=== PATIENT | female | born 1995 | race Caucasian/White ===

== ENCOUNTER 2017-01-26 01:57 | Emergency (ER) | payer SELFPAY ==
[~2017-01-26] VITALS: Ht 162.6 cm; Wt 109.1 kg
[2017-01-26] MEDS ORDERED: HYDROCODONE/ACETAMINOPHEN 5-325 MG TABLET PO ONE (04:15)
[2017-01-26] MEDS ORDERED: PROPARACAINE HCL 0.5% 15 ML OPHTHALMIC SOLUTION OS ONE (04:15)
[2017-01-26 05:47] VITALS: BP 121/67
== END 2017-01-26 05:50 | disposition home or self-care (01) ==
LOC: EMS 01:58
DX: S00.212A Abrasion of left eyelid and periocular area, initial encounter (principal); W22.8XXA Striking against or struck by other objects, initial encounter; Y93.89 Activity, other specified; Y92.89 Other specified places as the place of occurrence of the external cause; Y99.8 Other external cause status
CPT/HCPCS: 81025; 99283

== ENCOUNTER 2018-10-16 11:05 | Inpatient (IN) | payer MEDICAID ==
[~2018-10-16] VITALS: Ht 160 cm; Wt 109.1 kg
[2018-10-16] MEDS ORDERED: KETOROLAC TROMETHAMINE 30 MG/ML VIAL IVP ONE (12:00)
[2018-10-16] MEDS ORDERED: ACETAMINOPHEN 500 MG TABLET PO ONE (12:00)
[2018-10-16] MEDS ORDERED: SODIUM CHLORIDE 0.9% 1,000 ML IV ONE ×4 (12:00→15:45)
[2018-10-16] MEDS ORDERED: ONDANSETRON HCL 4 MG/2 ML VIAL IVP ONE (12:00)
[2018-10-16 12:24] LABS: BASOPHILS % (AUTO) 0.5 % (0.0-2.0); EOSINOPHILS % (AUTO) 0 % (1.0-6.0); HEMATOCRIT 44.3 % (36-46); HEMOGLOBIN 14.8 g/dL (12.0-16.0); LYMPHOCYTES # (AUTO) 1.2 K/uL (1.0-4.8); LYMPHOCYTES % (AUTO) 5.7 % (22.0-44.0); MEAN CORPUSCULAR HEMOGLOBIN 28.8 pg (26.0-34.0); MEAN CORPUSCULAR HGB CONC 33.4 G/dL (31.0-37.0); MEAN CORPUSCULAR VOLUME 86 fL (80-100); MONOCYTES # (AUTO) 1.4 K/uL (0.1-1.0); MONOCYTES % (AUTO) 6.8 % (2.0-9.0); NEUTROPHILS # (AUTO) 17.8 K/uL (1.8-7.7); PLATELET COUNT (AUTO) 272 K/uL (150-450); RED BLOOD CELL COUNT(AUTO) 5.14 MIL/uL (4.00-5.20); RED CELL DISTRIBUTION WIDTH 13.2 % (11.5-14.5)
[2018-10-16 12:41] LABS: APPEARANCE,URINE CLEAR (CLEAR); BILIRUBIN,URINE NEGATIVE (NEGATIVE); GLUCOSE, URINE (UA) >=1000 mg/dL (NEGATIVE); KETONES,URINE >=80 mg/dL (NEGATIVE); NITRATE,URINE NEGATIVE (NEGATIVE); OCCULT BLOOD,URINE TRACE (NEGATIVE); PROTEIN,URINE POS 1+ (NEGATIVE); UROBILINOGEN,URINE 0.2 mg/dL (<=1.0)
[2018-10-16 12:46] LABS: INFLUENZA TYPE A NEGATIVE FOR TYPE A (NEGATIVE); INFLUENZA TYPE B NEGATIVE FOR TYPE B (NEGATIVE)
[2018-10-16 12:49] LABS: ALANINE AMINOTRANSFERASE 17 U/L (12-78); ALBUMIN 3.1 g/dL (3.4-5.0); ALKALINE PHOSPHATASE 118 U/L (46-116); ANION GAP 15 mmol/L (8-16); ASPARTATE AMINOTRANSFERASE 12 U/L (15-37); BILIRUBIN,TOTAL 1.6 mg/dL (0.1-1.0); CALCIUM, TOTAL 9.5 mg/dL (8.8-10.5); CARBON DIOXIDE 23 mmol/L (22-29); CHLORIDE 93 mmol/L (98-107); CREATININE 1.05 mg/dL (0.60-1.30); GLOMERULAR FILTR. RATE CALC > 60 mL/min (>60); HCG,QUANTITATIVE < 1 mIU/mL (0-6); POTASSIUM 4.4 mmol/L (3.5-5.1); SODIUM SERUM 131 mmol/L (136-145); TOTAL PROTEIN, SERUM 8.8 g/dL (6.4-8.2); UREA NITROGEN, BLOOD 13 mg/dL (7-18)
[2018-10-16 12:51] LABS: GLUCOSE,RANDOM 414 mg/dL (70-110)
[2018-10-16 12:52] LABS: BACTERIA,URINE None Seen /HPF (None Seen); LEUKOCYTE ESTERASE ,URINE TRACE (NEGATIVE); RBC,URINE 0-2 /HPF (0-2); WBC,URINE 0-2 /HPF (0-5)
[2018-10-16 12:53] LABS: SQUAMOUS EPITHELIAL CELL,UR Few /LPF (None Seen)
[2018-10-16] MEDS ORDERED: INSULIN REGULAR, HUMAN 100 UNITS/ML IVP ONE (13:15)
[2018-10-16 13:22] LABS: LIPASE 52 U/L (73-393)
[2018-10-16] MEDS ORDERED: INSULIN LISPRO 100 UNITS/ML SQ PRN (14:30)
[2018-10-16] MEDS ORDERED: MORPHINE SULFATE 4 MG/ML SYRINGE IVP PRN (14:30)
[2018-10-16] MEDS: CefTRIAXone 1 GM/DEXTROSE 50 ML IV ONE ×2 (14:30→14:54)
[2018-10-16] MEDS ORDERED: GLUCAGON,HUMAN RECOMBINANT 1 MG VIAL IM PRN (14:30)
[2018-10-16] MEDS ORDERED: HYDROCODONE/ACETAMINOPHEN 5-325 MG TABLET PO PRN (14:30)
[2018-10-16] MEDS ORDERED: METOCLOPRAMIDE HCL 5 MG/ML 2 ML VIAL IVP ONE (14:30)
[2018-10-16] MEDS ORDERED: ONDANSETRON HCL 4 MG/2 ML VIAL IVP PRN (14:30)
[2018-10-16] MEDS ORDERED: ACETAMINOPHEN 325 MG TABLET PO PRN (14:30)
[2018-10-16 15:09] LABS: GLUCOSE,POINT OF CARE 316 MG/DL (70-110)
[2018-10-16] MEDS ORDERED: MAGNESIUM HYDROXIDE SUSPENSION 30 ML UDCUP PO PRN (15:45)
[2018-10-16] MEDS ORDERED: DEXTROSE 50%-WATER 25 GM/50 ML SYRINGE IVP PRN (15:45)
[2018-10-16] MEDS ORDERED: BISACODYL 10 MG RECTAL RECTAL SUPPOSITORY PR PRN (15:45)
[2018-10-16] MEDS: HEPARIN SODIUM,PORCINE 5,000 UNITS/ML VIAL SQ SCH ×2 (16:01→23:46)
[2018-10-16] MEDS: INSULIN LISPRO 100 UNITS/ML SQ PRN ×2 (16:02→20:17)
[2018-10-16] MEDS: ONDANSETRON HCL 4 MG/2 ML VIAL IVP PRN (18:26)
[2018-10-16 18:40] VITALS: BP 101/56
[2018-10-16] MEDS: MORPHINE SULFATE 2 MG/ML SYRINGE IVP PRN (19:27)
[2018-10-16] MEDS: ZOLPIDEM TARTRATE 5 MG TABLET PO PRN (20:17)
[2018-10-16] MEDS: DOCUSATE SODIUM 100 MG CAPSULE PO SCH (20:17)
[2018-10-16] MEDS: INSULIN GLARGINE,HUM.REC.ANLOG 100 UNITS/ML SQ SCH (20:18)
[2018-10-16] MEDS: ACETAMINOPHEN 325 MG TABLET PO PRN (20:33)
[2018-10-16] MEDS: HYDROCODONE/ACETAMINOPHEN 5-325 MG TABLET PO PRN (23:57)
[2018-10-17] VITALS (7 sets, daily range): BP systolic 105–129; BP diastolic 46–80
[2018-10-17 00:20] LABS: GLUCOMETER DEV NAME(LOC) 5N.2; GLUCOSE,POINT OF CARE 288 MG/DL (70-110)
[2018-10-17] MEDS: ACETAMINOPHEN 325 MG TABLET PO PRN ×3 (05:31→20:00)
[2018-10-17] MEDS: INSULIN LISPRO 100 UNITS/ML SQ PRN ×4 (06:14→20:01)
[2018-10-17 06:29] LABS: CALCIUM, TOTAL 8.2 mg/dL (8.8-10.5); CARBON DIOXIDE 20 mmol/L (22-29); CREATININE 0.78 mg/dL (0.60-1.30); GLOMERULAR FILTR. RATE CALC > 60 mL/min (>60); GLUCOSE,RANDOM 267 mg/dL (70-110); UREA NITROGEN, BLOOD 13 mg/dL (7-18)
[2018-10-17 07:02] LABS: ANION GAP 15 mmol/L (8-16); CHLORIDE 97 mmol/L (98-107); POTASSIUM 4.1 mmol/L (3.5-5.1); SODIUM SERUM 132 mmol/L (136-145)
[2018-10-17] MEDS: PANTOPRAZOLE SODIUM 40 MG DR TABLET PO SCH (09:16)
[2018-10-17] MEDS: DOCUSATE SODIUM 100 MG CAPSULE PO SCH ×2 (09:16→20:00)
[2018-10-17] MEDS: HEPARIN SODIUM,PORCINE 5,000 UNITS/ML VIAL SQ SCH ×3 (09:17→23:40)
[2018-10-17] MEDS: ONDANSETRON HCL 4 MG/2 ML VIAL IVP PRN ×3 (09:39→22:35)
[2018-10-17] MEDS: MORPHINE SULFATE 2 MG/ML SYRINGE IVP PRN ×3 (09:42→23:46)
[2018-10-17 11:30] LABS: GLUCOMETER DEV NAME(LOC) 5N.2; GLUCOSE,POINT OF CARE 270 MG/DL (70-110)
[2018-10-17 11:30] LABS: GLUCOMETER DEV NAME(LOC) 5N.2; GLUCOSE,POINT OF CARE 281 MG/DL (70-110)
[2018-10-17] MEDS: PIPERACILLIN SODIUM/TAZOBACTAM 4.5 GM in DEXTROSE 5%-WATER 100 ML IV SCH ×2 (12:21→20:00)
[2018-10-17] MEDS: HYDROCODONE/ACETAMINOPHEN 5-325 MG TABLET PO PRN ×2 (12:30→22:35)
[2018-10-17] MEDS ORDERED: CefTRIAXone 1 GM/DEXTROSE 50 ML IV SCH (15:00)
[2018-10-17] MEDS ORDERED: MORPHINE SULFATE 4 MG/ML SYRINGE IVP ONE (16:00)
[2018-10-17 19:24] LABS: GLUCOMETER DEV NAME(LOC) 5N.1; GLUCOSE,POINT OF CARE 232 MG/DL (70-110)
[2018-10-17] MEDS: INSULIN GLARGINE,HUM.REC.ANLOG 100 UNITS/ML SQ SCH (20:01)
[2018-10-17 21:49] LABS: GLUCOMETER DEV NAME(LOC) 5N.2; GLUCOSE,POINT OF CARE 209 MG/DL (70-110)
[2018-10-17] MEDS: ZOLPIDEM TARTRATE 5 MG TABLET PO PRN (23:53)
[2018-10-18] VITALS (7 sets, daily range): BP systolic 106–127; BP diastolic 59–78
[2018-10-18] MEDS ORDERED: DiphenhydrAMINE HCL 25 MG CAPSULE PO PRN (00:15)
[2018-10-18] MEDS: PIPERACILLIN SODIUM/TAZOBACTAM 4.5 GM in DEXTROSE 5%-WATER 100 ML IV SCH (03:43)
[2018-10-18] MEDS: INSULIN LISPRO 100 UNITS/ML SQ PRN ×4 (05:55→20:16)
[2018-10-18 06:14] LABS: BASOPHILS % (AUTO) 0.5 % (0.0-2.0); EOSINOPHILS % (AUTO) 0.3 % (1.0-6.0); HEMATOCRIT 34.5 % (36-46); HEMOGLOBIN 11.4 g/dL (12.0-16.0); LYMPHOCYTES # (AUTO) 1.7 K/uL (1.0-4.8); LYMPHOCYTES % (AUTO) 20.7 % (22.0-44.0); MEAN CORPUSCULAR HEMOGLOBIN 28.2 pg (26.0-34.0); MEAN CORPUSCULAR HGB CONC 33.2 G/dL (31.0-37.0); MEAN CORPUSCULAR VOLUME 85 fL (80-100); MONOCYTES # (AUTO) 0.8 K/uL (0.1-1.0); MONOCYTES % (AUTO) 10.4 % (2.0-9.0); NEUTROPHILS # (AUTO) 5.5 K/uL (1.8-7.7); NEUTROPHILS % (AUTO) 68.1 % (40.0-70.0); PLATELET COUNT (AUTO) 233 K/uL (150-450); RED BLOOD CELL COUNT(AUTO) 4.06 MIL/uL (4.00-5.20)
[2018-10-18 06:22] LABS: ANION GAP 14 mmol/L (8-16); CALCIUM, TOTAL 8.4 mg/dL (8.8-10.5); CARBON DIOXIDE 20 mmol/L (22-29); CHLORIDE 98 mmol/L (98-107); CREATININE 0.82 mg/dL (0.60-1.30); GLOMERULAR FILTR. RATE CALC > 60 mL/min (>60); GLUCOSE,RANDOM 238 mg/dL (70-110); POTASSIUM 3.6 mmol/L (3.5-5.1); SODIUM SERUM 132 mmol/L (136-145); UREA NITROGEN, BLOOD 8 mg/dL (7-18)
[2018-10-18 06:25] LABS: GLUCOMETER DEV NAME(LOC) 5N.2; GLUCOSE,POINT OF CARE 237 MG/DL (70-110)
[2018-10-18] MEDS: DOCUSATE SODIUM 100 MG CAPSULE PO SCH ×2 (08:26→20:10)
[2018-10-18] MEDS: HEPARIN SODIUM,PORCINE 5,000 UNITS/ML VIAL SQ SCH ×3 (08:27→23:17)
[2018-10-18] MEDS: PANTOPRAZOLE SODIUM 40 MG DR TABLET PO SCH (08:27)
[2018-10-18] MEDS: ONDANSETRON HCL 4 MG/2 ML VIAL IVP PRN ×2 (08:32→15:57)
[2018-10-18] MEDS: HYDROCODONE/ACETAMINOPHEN 5-325 MG TABLET PO PRN ×2 (08:32→15:57)
[2018-10-18] MEDS ORDERED: SODIUM CHLORIDE 0.9% 1,000 ML IV SCH (11:45)
[2018-10-18] MEDS ORDERED: *CLINICAL-LEVOFLOXACIN IVPB DOSING CLINICAL ONE (11:45)
[2018-10-18] MEDS ORDERED: SODIUM CHLORIDE 0.9% 1,000 ML IV ONE (11:45)
[2018-10-18 12:28] LABS: GLUCOMETER DEV NAME(LOC) 5N.1; GLUCOSE,POINT OF CARE 242 MG/DL (70-110)
[2018-10-18] MEDS: LEVOFLOXACIN 750 MG/D5% WATER 150 ML IV SCH (14:15)
[2018-10-18 18:15] LABS: GLUCOMETER DEV NAME(LOC) 5N.1; GLUCOSE,POINT OF CARE 255 MG/DL (70-110)
[2018-10-18] MEDS: INSULIN GLARGINE,HUM.REC.ANLOG 100 UNITS/ML SQ SCH (20:16)
[2018-10-18 21:19] LABS: GLUCOMETER DEV NAME(LOC) 5N.2; GLUCOSE,POINT OF CARE 258 MG/DL (70-110)
[2018-10-18] MEDS: ACETAMINOPHEN 325 MG TABLET PO PRN (23:18)
[2018-10-18] MEDS: MORPHINE SULFATE 2 MG/ML SYRINGE IVP PRN (23:22)
[2018-10-19 04:00] VITALS: BP 135/83
[2018-10-19] MEDS: ONDANSETRON HCL 4 MG/2 ML VIAL IVP PRN (04:54)
[2018-10-19] MEDS: MORPHINE SULFATE 2 MG/ML SYRINGE IVP PRN (04:54)
[2018-10-19] MEDS: INSULIN LISPRO 100 UNITS/ML SQ PRN ×2 (05:11→12:16)
[2018-10-19 05:25] LABS: GLUCOMETER DEV NAME(LOC) 5N.1; GLUCOSE,POINT OF CARE 234 MG/DL (70-110)
[2018-10-19 06:34] LABS: BASOPHILS % (AUTO) 0.7 % (0.0-2.0); EOSINOPHILS % (AUTO) 0.6 % (1.0-6.0); HEMATOCRIT 34.3 % (36-46); HEMOGLOBIN 11.9 g/dL (12.0-16.0); LYMPHOCYTES # (AUTO) 2.2 K/uL (1.0-4.8); LYMPHOCYTES % (AUTO) 30.3 % (22.0-44.0); MEAN CORPUSCULAR HEMOGLOBIN 28.9 pg (26.0-34.0); MEAN CORPUSCULAR HGB CONC 34.5 G/dL (31.0-37.0); MEAN CORPUSCULAR VOLUME 84 fL (80-100); MONOCYTES # (AUTO) 0.7 K/uL (0.1-1.0); MONOCYTES % (AUTO) 9.9 % (2.0-9.0); NEUTROPHILS # (AUTO) 4.3 K/uL (1.8-7.7); NEUTROPHILS % (AUTO) 58.5 % (40.0-70.0); PLATELET COUNT (AUTO) 266 K/uL (150-450); RED CELL DISTRIBUTION WIDTH 13.4 % (11.5-14.5)
[2018-10-19 06:53] LABS: ANION GAP 14 mmol/L (8-16); CALCIUM, TOTAL 8.5 mg/dL (8.8-10.5); CARBON DIOXIDE 21 mmol/L (22-29); CHLORIDE 101 mmol/L (98-107); CREATININE 0.58 mg/dL (0.60-1.30); GLOMERULAR FILTR. RATE CALC > 60 mL/min (>60); GLUCOSE,RANDOM 237 mg/dL (70-110); POTASSIUM 3.2 mmol/L (3.5-5.1); SODIUM SERUM 136 mmol/L (136-145); UREA NITROGEN, BLOOD 7 mg/dL (7-18)
[2018-10-19 07:19] VITALS: BP 132/74
[2018-10-19] MEDS: DOCUSATE SODIUM 100 MG CAPSULE PO SCH (08:28)
[2018-10-19] MEDS: PANTOPRAZOLE SODIUM 40 MG DR TABLET PO SCH (08:28)
[2018-10-19] MEDS: HEPARIN SODIUM,PORCINE 5,000 UNITS/ML VIAL SQ SCH (08:28)
[2018-10-19] MEDS ORDERED: POTASSIUM CHLORIDE 20 MEQ ER TABLET PO PRN (11:00)
[2018-10-19] MEDS ORDERED: POTASSIUM CHL 10 MEQ/WATER 50 ML IV PRN (11:00)
[2018-10-19 11:47] VITALS: BP 133/63
[2018-10-19 11:50] VITALS: BP 124/76
[2018-10-19 12:14] LABS: GLUCOMETER DEV NAME(LOC) 5N.2; GLUCOSE,POINT OF CARE 251 MG/DL (70-110)
[2018-10-19] MEDS: LEVOFLOXACIN 750 MG/D5% WATER 150 ML IV SCH ×2 (12:15→12:21)
[2018-10-19] MEDS ORDERED: LEVO500 PO (14:24)
[2018-10-19] MEDS ORDERED: INSLAN SQ (14:25)
== END 2018-10-19 15:00 | disposition home or self-care (01) | DRG 720 ==
LOC: EMS 11:05 → 5N 17:18
PROVIDERS: ADMIT Internal Medicine; ATTEND Internal Medicine
DX: A41.9 Sepsis, unspecified organism (principal); E11.8 Type 2 diabetes mellitus with unspecified complications; N12 Tubulo-interstitial nephritis, not specified as acute or chronic; E87.1 Hypo-osmolality and hyponatremia; E66.9 Obesity, unspecified; Z68.41 Body mass index [BMI] 40.0-44.9, adult
CPT/HCPCS: 74176; 83036; 83605; 87040; 87804; 96374; 96375; G0378; J0696; J1644; J1815; J1885; J1956; J2270; J2405; J2543; J2765; J7030; J7060